=== PATIENT | female | born 1990 | race Caucasian/White ===

== ENCOUNTER → 2017-03-02 | Outpatient (CLI) | payer BC ==
--- NOTE | 2017-03-02 13:48 | US ---
EXAMINATION TYPE: US pelvic complete DATE OF EXAM: 03/02/2017 1:25 PM COMPARISON: NONE CLINICAL HISTORY: N91.2 AMENORRHEA, [id number] BODY MASS INDEX. Amenorrhea, LMP: 5 months ago TECHNIQUE: Transabdominal (TA) Date of LMP: 5 months ago EXAM MEASUREMENTS: Uterus: 7.1 x 2.5 x 4.2 cm cm Endometrial Stripe: 0.5 cm Right Ovary: 2.9 x 2.1 x 2.8 cm Left Ovary: 2.8 x 1.1 x 1.9 cm 1. Uterus: Anteverted wnl 2. Endometrium: wnl 3. Right Ovary: wnl 4. Left Ovary: wnl 5. Bilateral Adnexa: wnl 6. Posterior cul-de-sac: wnl IMPRESSION: NORMAL PELVIC ULTRASOUND.
== END | disposition home or self-care (01) ==
LOC: RADUSWWP 13:10
PROVIDERS: ATTEND Family Medicine
DX: N91.2 Amenorrhea, unspecified (principal); N92.6 Irregular menstruation, unspecified
CPT/HCPCS: 76856

== ENCOUNTER → 2020-09-11 | Outpatient (CLI) | payer OTHER ==
--- NOTE | 2020-09-12 07:22 | US ---
EXAMINATION TYPE: US abdomen complete DATE OF EXAM: 09/11/2020 COMPARISON: NONE CLINICAL HISTORY: R11.10 Vomiting; R10.9 abdominal pain. EXAM MEASUREMENTS: Liver Length: 14.3 cm Gallbladder Wall: 0.1 cm CBD: 0.3 cm Spleen: 9.7 cm Right Kidney: 10.9 x 4.1 x 5.3 cm Left Kidney: 10.0 x 4.7 x 4.5 cm Patient of large body habitus. Pancreas: Tail obscured by overlying bowel gas Liver: wnl Gallbladder: wnl Evidence for sonographic Stephens's sign: no CBD: wnl Spleen: wnl Right Kidney: No hydronephrosis or masses seen Left Kidney: No hydronephrosis or masses seen Upper IVC: wnl Abd Aorta: bifurcation obscured by bowel gas The liver is homogenous. The intrahepatic portion of the IVC and proximal abdominal aorta are within normal limits. There is no evidence of cholelithiasis. Common bile duct is unremarkable. The visu alized portions of the pancreas are homogenous. The spleen is unremarkable. Kidneys are symmetric a nd free of hydronephrosis. No renal lesions are seen. IMPRESSION: No abnormality evident
== END | disposition home or self-care (01) ==
LOC: RADUSWWP 16:14
PROVIDERS: ATTEND Family Medicine
DX: R11.10 Vomiting, unspecified (principal); R10.9 Unspecified abdominal pain
CPT/HCPCS: 76700

== ENCOUNTER → 2020-10-11 | Outpatient (CLI) | payer OTHER ==
--- NOTE | 2020-10-11 09:25 | NM ---
EXAMINATION TYPE: NM hepatobiliary wo EF DATE OF EXAM: 10/11/2020 COMPARISON: NONE INDICATION: Abdomen pain TECHNIQUE: After the intravenous administration of 5 mCi Tc 99m Mebrofenin hepatobiliary scintigraphy is performed. Images were obtained immediately post injection. FINDINGS: There is prompt uptake and excretion of radiotracer by the liver. Extrahepatic ducts are identified at 7 minutes. The gallbladder is not visualized Small bowel activity is noted within 9 minutes. Two-hour delayed images were obtained. Radiotracer is largely excreted. IMPRESSION: 1. Clinical correlation recommended for cystic duct obstruction.
== END | disposition home or self-care (01) ==
LOC: RADNMMAIN 06:37
PROVIDERS: ATTEND Family Medicine
DX: R10.10 Upper abdominal pain, unspecified (principal); R11.10 Vomiting, unspecified
CPT/HCPCS: 78226; A9537

== ENCOUNTER 2021-02-03 13:28 | Emergency (ER) | payer OTHER ==
[2021-02-03 13:32] VITALS: RESP 16; TEMP 97.4
--- NOTE | 2021-02-03 13:43 | ED ---
Dizziness HPI - General Chief Complaint: Dizziness Stated Complaint: High Blood Pressure Time Seen by Provider: 02/03/21 13:36 Source: patient Mode of arrival: ambulatory Limitations: no limitations - History of Present Illness Initial Comments: 30-year-old female presents to emergency department with a chief complaint of high blood pressure. Patient reports yesterday she began to feel "disoriented". Patient reports she did not feel well and left work to go home. Patient reports she woke up this morning and her symptoms continued. Patient reports prior to coming to the ED, she obtained a blood pressure was elevated. States she takes 20 mg of lisinopril daily. She has strong family history of hypertension and has been taking the antihypertensive since last year. She denies any chest pain or shortness of breath. Reports having a mild headache but states she does have history of migraines. She denies any visual changes, photosensitivity, nausea or vomiting. She denies any fevers or chills. She denies any cough or URI-like symptoms. - Related Data Home Medications Medication Instructions Recorded Confirmed Cetirizine HCl [Zyrtec] 10 mg PO HS 02/03/21 02/03/21 Desvenlafaxine Succinate [Pristiq] 50 mg PO HS 02/03/21 02/03/21 Omeprazole 20 mg PO HS 02/03/21 02/03/21 Primella 1 1 tab PO HS 02/03/21 02/03/21 lisinopriL [Zestril] 20 mg PO HS 02/03/21 02/03/21 Allergies Allergy/AdvReac Type Severity Reaction Status Date / Time ibuprofen Allergy Rash/Hives Verified 02/03/21 14:18 Review of Systems ROS Statement: Those systems with pertinent positive or pertinent negative responses have been documented in the HPI. ROS Other: All systems not noted in ROS Statement are negative. Past Medical History Past Medical History: Hypertension History of Any Multi-Drug Resistant Organisms: None Reported Past Surgical History: Cholecystectomy Past Psychological History: Anxiety Smoking Status: Never smoker Past Alcohol Use History: None Reported Past Drug Use History: None Reported General Exam Limitations: no limitations General appearance: alert, in no apparent distress Head exam: Present: atraumatic, normocephalic, normal inspection Eye exam: Present: normal appearance, PERRL, EOMI Pupils: Present: normal accommodation ENT exam: Present: normal exam, normal oropharynx, mucous membranes moist, TM's normal bilaterally, normal external ear exam Neck exam: Present: normal inspection, full ROM. Absent: tenderness, lymphadenopathy Respiratory exam: Present: normal lung sounds bilaterally. Absent: respiratory distress, wheezes, rales, rhonchi, stridor, chest wall tenderness Cardiovascular Exam: Present: regular rate, normal rhythm, normal heart sounds. Absent: systolic murmur Extremities exam: Present: normal inspection, full ROM, normal capillary refill. Absent: tenderness Back exam: Present: normal inspection, full ROM. Absent: tenderness, CVA tenderness (R), CVA tenderness (L) Neurological exam: Present: alert, oriented X3, CN II-XII intact, normal gait Psychiatric exam: Present: normal affect, normal mood Skin exam: Present: warm, dry, intact, normal color Course Vital Signs 02/03/21 02/03/21 13:29 15:42 Temperature 97.4 F L Pulse Rate 94 80 Respiratory 16 16 Rate Blood Pressure 158/112 128/99 O2 Sat by Pulse 100 99 Oximetry EKG Findings - EKG Comments: EKG Findings:: Sinus rhythm, inverted T waves V3. Ventricular rate 67, ID 126, QRS 86, QTC 420. Medical Decision Making - Medical Decision Making 30-year-old female presents to emergency department with a chief complaint of high blood pressure. On physical examination, patient does not appear to be in any distress. No focal neural deficits. She does not have any complaints on arrival. She was initially slightly hypertensive which has improved by the time she was discharged. The rest of vitals are within normal limits. EKG showed no acute findings. Patient was only given IV fluids. CBC, CMP and UA unremarkable. Troponin negative. The patient to follow up with the primary care physician. Strict return parameters were thoroughly discussed with patient was understanding and agreeable. Case discussed with Dr. Ceja - Lab Data Result diagrams: 02/03/21 14:06 02/03/21 14:06 Lab Results 02/03/21 02/03/21 02/03/21 Range/Units 14:06 14:06 14:06 WBC 8.3 (3.8-10.6) k/uL RBC 4.49 (3.80-5.40) m/uL Hgb 13.6 (11.4-16.0) gm/dL Hct 42.4 (34.0-46.0) % MCV 94.4 (80.0-100.0) fL MCH 30.3 (25.0-35.0) pg MCHC 32.1 (31.0-37.0) g/dL RDW 13.3 (11.5-15.5) % Plt Count 342 (150-450) k/uL MPV 7.2 Neutrophils % 66 % Lymphocytes % 27 % Monocytes % 4 % Eosinophils % 2 % Basophils % 0 % Neutrophils # 5.5 (1.3-7.7) k/uL Lymphocytes # 2.2 (1.0-4.8) k/uL Monocytes # 0.3 (0-1.0) k/uL Eosinophils # 0.2 (0-0.7) k/uL Basophils # 0.0 (0-0.2) k/uL Sodium (137-145) mmol/L Potassium (3.5-5.1) mmol/L Chloride (98-107) mmol/L Carbon Dioxide (22-30) mmol/L Anion Gap mmol/L BUN (7-17) mg/dL Creatinine (0.52-1.04) mg/dL Est GFR (CKD-EPI)AfAm (>60 ml/min/1.73 sqM) Est GFR (CKD-EPI)NonAf (>60 ml/min/1.73 sqM) Glucose (74-99) mg/dL Calcium (8.4-10.2) mg/dL Total Bilirubin (0.2-1.3) mg/dL AST (14-36) U/L ALT (4-34) U/L Alkaline Phosphatase (38-126) U/L Troponin I (0.000-0.034) ng/mL Total Protein (6.3-8.2) g/dL Albumin (3.5-5.0) g/dL Urine Color Yellow Urine Appearance Clear (Clear) Urine pH 6.0 (5.0-8.0) Ur Specific [place] 1.029 (1.001-1.035) Urine Protein Trace H (Negative) Urine Glucose (UA) Negative (Negative) Urine Ketones Negative (Negative) Urine Blood Negative (Negative) Urine Nitrite Negative (Negative) Urine Bilirubin Negative (Negative) Urine Urobilinogen 2.0 (<2.0) mg/dL Ur Leukocyte Esterase Trace H (Negative) Urine RBC <1 (0-5) /hpf Urine WBC 1 (0-5) /hpf Ur Squamous Epith Cells 5 H (0-4) /hpf Urine Bacteria Rare H (None) /hpf Urine Mucus Many H (None) /hpf Urine HCG, Qual Not Detected (Not Detectd) 02/03/21 02/03/21 Range/Units 14:06 14:06 WBC (3.8-10.6) k/uL RBC (3.80-5.40) m/uL Hgb (11.4-16.0) gm/dL Hct (34.0-46.0) % MCV (80.0-100.0) fL MCH (25.0-35.0) pg MCHC (31.0-37.0) g/dL RDW (11.5-15.5) % Plt Count (150-450) k/uL MPV Neutrophils % % Lymphocytes % % Monocytes % % Eosinophils % % Basophils % % Neutrophils # (1.3-7.7) k/uL Lymphocytes # (1.0-4.8) k/uL Monocytes # (0-1.0) k/uL Eosinophils # (0-0.7) k/uL Basophils # (0-0.2) k/uL Sodium 139 (137-145) mmol/L Potassium 3.7 (3.5-5.1) mmol/L Chloride 105 (98-107) mmol/L Carbon Dioxide 29 (22-30) mmol/L Anion Gap 5 mmol/L BUN 8 (7-17) mg/dL Creatinine 0.61 (0.52-1.04) mg/dL Est GFR (CKD-EPI)AfAm >90 (>60 ml/min/1.73 sqM) Est GFR (CKD-EPI)NonAf >90 (>60 ml/min/1.73 sqM) Glucose 96 (74-99) mg/dL Calcium 9.6 (8.4-10.2) mg/dL Total Bilirubin 0.5 (0.2-1.3) mg/dL AST 24 (14-36) U/L ALT 16 (4-34) U/L Alkaline Phosphatase 81 (38-126) U/L Troponin I <0.012 (0.000-0.034) ng/mL Total Protein 7.2 (6.3-8.2) g/dL Albumin 4.4 (3.5-5.0) g/dL Urine Color Urine Appearance (Clear) Urine pH (5.0-8.0) Ur Specific [place] (1.001-1.035) Urine Protein (Negative) Urine Glucose (UA) (Negative) Urine Ketones (Negative) Urine Blood (Negative) Urine Nitrite (Negative) Urine Bilirubin (Negative) Urine Urobilinogen (<2.0) mg/dL Ur Leukocyte Esterase (Negative) Urine RBC (0-5) /hpf Urine WBC (0-5) /hpf Ur Squamous Epith Cells (0-4) /hpf Urine Bacteria (None) /hpf Urine Mucus (None) /hpf Urine HCG, Qual (Not Detectd) Disposition Clinical Impression: Lightheadedness Disposition: HOME SELF-CARE Condition: Stable Instructions (If sedation given, give patient instructions): Lightheadedness (ED) Additional Instructions: Follow with the primary care physician. Return to emergency department if symptoms worsen. Is patient prescribed a controlled substance at d/c from ED?: No Referrals: Nubia Ace MD [Primary Care Provider] - 1-2 days Time of Disposition: 15:25
[2021-02-03] MEDS ORDERED: SODIUM CHLORIDE 0.9% 1,000 ML IV STA (13:58)
[2021-02-03 14:23] LABS: Basophils % (A) 0 %; Eosinophils # (A) 0.2 k/uL (0-0.7); Eosinophils % (A) 2 %; HCT 42.4 % (34.0-46.0); HGB 13.6 gm/dL (11.4-16.0); Lymphocytes # (A) 2.2 k/uL (1.0-4.8); Lymphocytes % (A) 27 %; MCH 30.3 pg (25.0-35.0); MCHC 32.1 g/dL (31.0-37.0); MCV 94.4 fL (80.0-100.0); Mean Platelet Volume 7.2; Monocytes # (A) 0.3 k/uL (0-1.0); Monocytes % (A) 4 %; Neutrophils # (A) 5.5 k/uL (1.3-7.7); Neutrophils % (A) 66 %; Platelet Count 342 k/uL (150-450); RBC 4.49 m/uL (3.80-5.40); RDW 13.3 % (11.5-15.5); WBC 8.3 k/uL (3.8-10.6)
[2021-02-03 14:27] LABS: ALT 16 U/L (4-34); AST 24 U/L (14-36); African American GFR (CKD) >90 (>60 ml/min/1.73 sqM); Albumin 4.4 g/dL (3.5-5.0); Alkaline Phosphatase 81 U/L (38-126); Anion Gap 5 mmol/L; Blood Urea Nitrogen 8 mg/dL (7-17); Calcium 9.6 mg/dL (8.4-10.2); Carbon Dioxide 29 mmol/L (22-30); Chloride 105 mmol/L (98-107); Glucose 96 mg/dL (74-99); Non-African American GFR(CKD) >90 (>60 ml/min/1.73 sqM); Potassium 3.7 mmol/L (3.5-5.1); Sodium 139 mmol/L (137-145); Total Bilirubin 0.5 mg/dL (0.2-1.3); Total Protein 7.2 g/dL (6.3-8.2)
[2021-02-03 14:41] LABS: Appearance,Urine Clear (Clear); Bacteria,Urine Rare /hpf; Bilirubin,Urine Negative (Negative); Blood,Urine Negative (Negative); Color,Urine Yellow; Glucose,Urine (UA) Negative (Negative); Ketones,Urine Negative (Negative); Leukocyte Esterase,Urine Trace (Negative); Mucus,Urine Many /hpf; Nitrite,Urine Negative (Negative); Protein,Urine Trace (Negative); RBC,Urine <1 /hpf (0-5); Specific Gravity,Urine 1.029 (1.001-1.035); Squamous Epithelial Cell,Urine 5 /hpf (0-4); WBC,Urine 1 /hpf (0-5)
[2021-02-03 15:43] VITALS: BP 128/99; PULSE 80
== END 2021-02-03 15:51 | disposition home or self-care (01) ==
LOC: EC 13:28
DX: R42 Dizziness and giddiness (principal); I10 Essential (primary) hypertension; Z90.49 Acquired absence of other specified parts of digestive tract
CPT/HCPCS: 36415; 80053; 81001; 81025; 84484; 85025; 93005; 96360; 99284

== ENCOUNTER → 2022-10-31 | Outpatient (CLI) | payer OTHER ==
--- NOTE | 2022-10-31 10:22 | XR ---
EXAMINATION TYPE: XR foot complete LT DATE OF EXAM: 10/31/2022 10:19 AM INDICATION: Patient age:Female; 32 years old; Reason for study: M79.672 left foot pain; PHH. COMPARISON: None TECHNIQUE: The left foot was examined in the AP, oblique, and lateral projections. FINDINGS: No evidence of any acute osseous pathology. No evidence of soft tissue swelling. Joints are preserve d. IMPRESSION: No evidence of acute fracture.
== END | disposition home or self-care (01) ==
LOC: RADXRMAIN 10:04
PROVIDERS: ATTEND Nurse Practitioner Family
DX: M79.672 Pain in left foot (principal)

== ENCOUNTER → 2023-05-07 | Outpatient (CLI) | payer OTHER ==
--- NOTE | 2023-05-07 19:48 | XR ---
EXAMINATION TYPE: XR knee complete LT DATE OF EXAM: 05/07/2023 COMPARISON: None HISTORY: 33-year-old female M25.562 Pain left knee TECHNIQUE: 3 views FINDINGS: There is some increased density in the infra patellar Hoffa's fat. There is a trace effusion in the s uprapatellar pouch. Some anterior soft tissue swelling is noted. No acute fracture, subluxation, disl ocation. IMPRESSION: Some anterior soft tissue swelling. There is some density within the infrapatellar Hoffa's fat that c ould reflect underlying joint effusion or synovitis. If pain persists and if there is concern for int ernal derangement, consider MRI. No acute osseous abnormality seen.
== END | disposition home or self-care (01) ==
LOC: RADXRMAIN 14:21
PROVIDERS: ATTEND Nurse Practitioner Family
DX: M79.89 Other specified soft tissue disorders (principal)

== ENCOUNTER 2024-01-05 08:44 | Outpatient (CLI) | payer OTHER ==
[2024-01-05] MEDS: LACTATED RINGERS 1,000 ML IV ONE (09:15)
[2024-01-05 09:38] LABS: Basophils % (A) 0 %; Eosinophils # (A) 0.1 k/uL (0-0.7); Eosinophils % (A) 1 %; HCT 39.1 % (34.0-46.0); Lymphocytes # (A) 2.5 k/uL (1.0-4.8); Lymphocytes % (A) 24 %; MCH 32.1 pg (25.0-35.0); MCHC 33.3 g/dL (31.0-37.0); MCV 96.2 fL (80.0-100.0); Mean Platelet Volume 7.8; Monocytes # (A) 0.4 k/uL (0-1.0); Monocytes % (A) 4 %; Neutrophils % (A) 69 %; Platelet Count 237 k/uL (150-450); RBC 4.06 m/uL (3.80-5.40); RDW 12.6 % (11.5-15.5); WBC 10.3 k/uL (3.8-10.6)
[2024-01-05 09:51] LABS: Appearance,Urine Cloudy (Clear); Bacteria,Urine Rare /hpf; Bilirubin,Urine Negative (Negative); Blood,Urine Negative (Negative); Color,Urine Yellow; Glucose,Urine (UA) Negative (Negative); Ketones,Urine Trace (Negative); Leukocyte Esterase,Urine Trace (Negative); Mucus,Urine Many /hpf; Nitrite,Urine Negative (Negative); PH, Urine 6.5 (5.0-8.0); Protein,Urine Trace (Negative); RBC,Urine 2 /hpf (0-5); Specific Gravity,Urine 1.033 (1.001-1.035); Squamous Epithelial Cell,Urine 4 /hpf (0-4); Urobilinogen,Urine >12.0 mg/dL (<2.0); WBC,Urine 4 /hpf (0-5)
[2024-01-05 14:17] VITALS: BP 122/91; PULSE 67; RESP 18; TEMP 95.4
--- NOTE | 2024-01-08 10:59 | P.MSEPDOC ---
Presenting Problems - Arrival Data Date of Arrival on Unit: 01/05/24 Time of Arrival on Unit: 08:44 Mode of Transport: Ambulatory - Complaint OB-Reason for Admission/Chief Complaint: Other Comment: pt c/p Nausea/Vomitting. Medical History - Information : 1 Para: 0 Term: 0 : 0 Abortions: Spontaneous or Elective: 0 Number of Living Children: 0 - Gestational Age Gestational Age by GIL (wks/days): 20 Weeks and 2 Days Review of Systems - Review of Systems Constitutional: No problems Breast: No problems ENT: No problems Cardiovascular: No problems Respiratory: No problems Gastrointestinal: No problems Genitourinary: No problems Musculoskeletal: No problems Neurological: No problems Skin: No problems Vital Signs - Temperature Temperature: 95.4 F Temperature Source: Temporal Artery Scan - Pulse Pulse Oximetery Pulse Rate: 67 Pulse Assessment Method: Pulse Oximetry - Respirations Respiratory Rate: 18 Oxygen Delivery Method: Room Air O2 Sat by Pulse Oximetry: 99 - Blood Pressure Right Arm Blood Pressure: 122/91 Blood Pressure Mean: 101 Blood Pressure Source: Automatic Cuff Physician Notification - Physician Notified Physician Notified Date: 01/05/24 Physician Notified Time: 11:37 Physician: Johnathon Roca Order Received: Yes (Discharge home with follow up instructions.) Maternal Triage Index - Maternal Triage Index Presenting for scheduled procedure w/no complaint: No - Stat/Priority 1 Stat Priority 1: No - Urgent/Priority 2 Urgent Priority 2: No - Prompt/Priority 3 Prompt Priority 3: No - Non-Urgent/Priority 4 Non-Urgent Priority 4: Yes Criteria Met for Priority 4: Nausea/vomitting. Disposition - Disposition OB Disposition: Discharge to home Discharge Date: 01/05/24 Discharge Time: 11:44 I agree with the RN Medical Screening Exam: Yes Physician's MSE Comment: I have neither seen nor examined the patient. Case reviewed; plan agreed upon as documented in EMR&OBIX.: Yes Diagnosis: EXCESSIVE WEIGHT GAIN IN , SECOND TRIMESTER
== END 2024-01-05 11:44 | disposition home or self-care (01) ==
LOC: FBPOP 08:44
PROVIDERS: ATTEND Obstetrics & Gynecology
DX: O21.9 Vomiting of pregnancy, unspecified (principal); O26.02 Excessive weight gain in pregnancy, second trimester; Z3A.20 20 weeks gestation of pregnancy; Z88.6 Allergy status to analgesic agent
CPT/HCPCS: 36415; 81001; 85025; 96360; 96361; 99214

== ENCOUNTER 2024-04-23 06:00 | Inpatient (IN) | payer OTHER ==
[2024-04-23] MEDS ORDERED: CARBOPROST TROMETHAMINE 250 MCG/ML 1 ML AMP IM PRN ×2 (06:29→13:46)
[2024-04-23] MEDS ORDERED: LIDOCAINE 0.5% (PF) 5 MG/ML (50 ML SDV) SQ PRN (06:29)
[2024-04-23] MEDS ORDERED: TRANEXAMIC 1,000 MG/100ML-NACL 1,000 MG in EMPTY BAG 1 BAG IV PRN ×2 (06:29→13:46)
[2024-04-23] MEDS ORDERED: miSOPROStoL 200 MCG TAB RECTAL PRN (06:29)
[2024-04-23] MEDS ORDERED: miSOPROStoL 200 MCG TAB PO PRN ×2 (06:29→13:46)
[2024-04-23] MEDS ORDERED: OXYTOCIN 10 UNIT/ML 1 ML VIAL IM PRN ×2 (06:29→13:46)
[2024-04-23] MEDS ORDERED: TERBUTALINE 1 MG/ML VIAL SQ PRN (06:29)
[2024-04-23] MEDS ORDERED: METHYLERGONOVINE 0.2 MG/ML 1 ML AMP IM PRN ×2 (06:29→13:46)
[2024-04-23] MEDS: LACTATED RINGERS 1,000 ML IV SCH ×2 (06:45→17:55)
[2024-04-23 07:05] LABS: Basophils # (A) 0.1 k/uL (0-0.2); Basophils % (A) 1 %; Eosinophils # (A) 0.2 k/uL (0-0.7); Eosinophils % (A) 1 %; HCT 38.9 % (34.0-46.0); HGB 13.8 gm/dL (11.4-16.0); Lymphocytes # (A) 2.3 k/uL (1.0-4.8); Lymphocytes % (A) 16 %; MCH 33.6 pg (25.0-35.0); MCHC 35.5 g/dL (31.0-37.0); MCV 94.7 fL (80.0-100.0); Monocytes # (A) 0.5 k/uL (0-1.0); Monocytes % (A) 3 %; Neutrophils # (A) 11.3 k/uL (1.3-7.7); Neutrophils % (A) 78 %; Platelet Count 242 k/uL (150-450); RDW 12.9 % (11.5-15.5); WBC 14.5 k/uL (3.8-10.6)
[2024-04-23] MEDS: OXYTOCIN 30 UNITS/500 ML NS 30 UNIT in SALINE 1 500ML.BAG IV SCH (08:54)
[2024-04-23] MEDS ORDERED: OXYTOCIN 30 UNITS/500 ML NS 30 UNIT in SALINE 1 500ML.BAG IV SCH (09:00)
--- NOTE | 2024-04-23 09:42 | P.HPOB ---
History of Present Illness H&P Date: 04/23/24 Chief Complaint: medical induction of labor Ms. Sarmiento is a 34 year old at 35 weeks and 6 days with EDC of 05/22/24 by LMP consistent with 11 week US who presents for medical induction of labor for IUGR 6%ile with finding of intermittently absent end diastolic flow in umbilical arteries on 04/22 on ultrasound. Prior to this finding, all surveillance was reassuring. The has also been complicated by maternal anxiety and depression for which she takes Pristiq 100mg daily. Finally, the patient has a history of chronic hypertension for which she has been stable on Propranolol 60mg from her PCP. Upon admission today, the patient did have mild to severe range elevated blood pressures. PI labs are pending. The patient denies headache, visual disturbances, right upper quadrant pain, chest pain, shortness of breath. work-up: blood type B positive, antibody screen negative, rubella immune, VDRL non-reactive, HBsAg negative, HIV negative, HCV Ab negative, gonorrhea negative, chlamydia negative, 1 hour GTT within normal limits, s/p TDap, GBS unknown as the patient is still 35 weeks. Past Medical History Past Medical History: Hypertension History of Any Multi-Drug Resistant Organisms: None Reported Past Surgical History: Cholecystectomy Additional Past Anesthesia/Blood Transfusion Reaction / Comment(s): nausea Past Psychological History: Anxiety Smoking Status: Never smoker Past Alcohol Use History: None Reported Past Drug Use History: None Reported Medications and Allergies Home Medications Medication Instructions Recorded Confirmed Type Desvenlafaxine Succinate [Pristiq] 50 mg PO HS 02/03/21 04/23/24 History Propranolol HCl [Inderal] 60 mg PO DAILY 01/05/24 04/23/24 History Allergies Allergy/AdvReac Type Severity Reaction Status Date / Time ibuprofen Allergy Rash/Hives Verified 04/23/24 06:28 Exam Vital Signs Temp Pulse Resp BP Pulse Ox 04/23/24 06:27 96.4 F L 62 16 137/99 95 Intake and Output 04/22/24 04/23/24 04/23/24 22:59 06:59 14:59 Other: Weight 104.326 kg Focused physical exam is performed. This is a healthy-appearing in no apparent distress. Breathing is non-labored. Abdomen is gravid and non-tender. Cervical exam is 1/thick/-3 Sterile speculum was used to place a cooks catheter with 60cc in each balloon. Extremities non-tender and non-edematous. heart tones are reactive and reassuring on NST. Results Result Diagrams: 04/23/24 06:46 Abnormal Lab Results - Last 24 Hours (Table) 04/23/24 Range/Units 06:46 WBC 14.5 H (3.8-10.6) k/uL Neutrophils # 11.3 H (1.3-7.7) k/uL Assessment and Plan Assessment: 34 year old at 35 weeks and 6 days here for medical induction of labor for IUGR 6%ile with umbilical artery dopplers showing intermittently absent end diastolic flow Plan: Admit, clear liquid diet, cooks catheter x6-12 hours with low-dose pitocin, IV nubain prn, continuous EFM and tocometer, PCN G for GBS ppx.
[2024-04-23] MEDS: PENICILLIN G POTASSIUM 5,000,000 UNIT in DEXTROSE 5% IN WATER 100 ML IVPB STA (10:01)
[2024-04-23] MEDS: ONDANSETRON 4 MG/2 ML VIAL IVP PRN (10:51)
[2024-04-23] MEDS: NALBUPHINE 10 MG/ML (10 ML MDV) IV PRN (10:59)
[2024-04-23 11:15] LABS: ALT 10 U/L (4-34); African American GFR (CKD) >90 (>60 ml/min/1.73 sqM); Blood Urea Nitrogen 5 mg/dL (7-17); LDH 225 U/L (120-246); Non-African American GFR(CKD) >90 (>60 ml/min/1.73 sqM); Uric Acid 5.3 mg/dL (3.7-7.4)
[2024-04-23 12:30] LABS: Glucose,Whole Blood 105 mg/dL (70-110)
[2024-04-23] MEDS: hydrALAZINE HCL 20 MG/ML 1 ML VIAL IVP STA (12:47)
[2024-04-23 13:22] LABS: Creatinine,Urine Random 56.8 mg/dL; Protein/Creatinine Ratio,Urine 0.264
[2024-04-23] MEDS ORDERED: ONDANSETRON 4 MG/2 ML VIAL ONE (14:08)
[2024-04-23] MEDS ORDERED: OXYTOCIN 30 UNITS/500 ML NS BAG IV ONE (14:08)
[2024-04-23] MEDS ORDERED: MORPHINE SULFATE (PF) 0.3 MG/0.3 ML SYR ONE (14:08)
[2024-04-23] MEDS ORDERED: CELLULOSE,OXIDIZED 1 EACH EACH MISCELLANE ONE (14:45)
[2024-04-23] MEDS: CITRIC ACID-SODIUM CITRATE 15 ML CUP PO ONE (15:15)
[2024-04-23] MEDS: NA PHOS,M-B/NA PHOS,DI-BA 133 ML ENEMA RECTAL STA (15:15)
[2024-04-23] MEDS: PENICILLIN G POTASSIUM 2,500,000 UNIT in DEXTROSE 5% IN WATER 100 ML IVPB SCH (15:15)
[2024-04-23] MEDS ORDERED: NALOXONE 0.4 MG/ML 1 ML VIAL IV PRN (15:38)
[2024-04-23] MEDS ORDERED: ONDANSETRON 4 MG/2 ML VIAL IVP PRN (15:38)
[2024-04-23] MEDS ORDERED: diphenhydrAMINE 50 MG/ML 1 ML VIAL IVP PRN ×2 (15:38)
[2024-04-23] MEDS ORDERED: ZOLPIDEM 5 MG TAB PO PRN (15:38)
[2024-04-23] MEDS ORDERED: SIMETHICONE 80 MG CHEWABLE PO PRN (15:38)
[2024-04-23] MEDS ORDERED: diphenhydrAMINE 25 MG CAP PO PRN (15:38)
[2024-04-23] MEDS ORDERED: METOCLOPRAMIDE 5 MG/ML 2 ML VIAL IVP PRN (15:38)
[2024-04-23] MEDS ORDERED: diphenhydrAMINE 50 MG CAP PO PRN (15:38)
--- NOTE | 2024-04-23 15:38 | P.OP ---
Date of Procedure: 04/23/24 Preoperative Diagnosis: 1. IUP at 35 weeks and 6 days 2. IUGR 3. Intermittently absent end diastolic flow in umbilical arteries 4. Chronic hypertension 5. Breech presentation Postoperative Diagnosis: Same Procedure(s) Performed: Primary Lower Transverse Section with T incision Implants: None Anesthesia: spinal Surgeon: Annamaria Lara Database Administration Manager #1: Augustina Nelson Estimated Blood Loss (ml): 750 IV fluids (ml): 600 Urine output (ml): 100 (clear yellow) Pathology: other (placenta to pathology) Disposition: floor Indications for Procedure: Ms. Sarmiento is a 34 year old at 35 weeks and 6 days who presented for medical induction of labor for IUGR with UA dopplers showing intermittently absent end diastolic flow as well as a history of chronic hypertension. Cooks catheter was placed for cervical ripening. Patient was not tolerating cooks catheter well, therefore it was removed after 5 hours and the patient was dilated to 5 centimeters. AROM was performed at this time, and a foot was noted in the vagina. section was recommended as the fetus had flipped to breech presentation. This was also confirmed with bedside ultrasound. The risks, benefits, and alternatives to section were discussed with the patient including risk of bleeding, infection, damage to surrounding structures including bladder/bowels/ureters, and post-operative VTE. The patient u nderstands these risks and desires to proceed with section. Operative Findings: Clear amniotic fluid noted, infant in single footling breech presentation with a hyperextended neck making delivery of the head difficult. Apgars were 1/6/9 at 1-, 5-, and 10-minutes respectively. The weighed 3 pounds and 13 ounces. Uterus, bilateral fallopian tubes, and ovaries all within normal limits. Description of Procedure: The patient was taken back to the operating room where spinal anesthesia was found to be adequate. Two grams of Ancef were given for infection prophylaxis. She was prepared and draped in the dorsal supine position with a leftward tilt. A Pfannenstiel skin incision was made with the scalpel. The incision was carried down to the fascia with a bovie. The fascia was incised and extended laterally with Lyman scissors. The superior aspect of the fascia was grasped with the Jania clamps. The underlying rectus muscle was dissected off sharply with Lyman scissors. In a similar fashion, the inferior aspect of the fascia was elevated with Jania clamps and the rectus muscle and pyramidalis were dissected off. Excellent hemostasis was achieved with the bovie. The rectus muscle was in the midline down to the level of the pubic symphysis. Pre- peritoneal fatty tissue was bluntly dissected to expose the peritoneum. The peritoneum was found to be free of adherent bowel and entered sharply with Lyman scissors. The peritoneal incision was extended superiorly and inferiorly to the bladder reflection with good visualization of the bladder. The bladder blade was inserted and vesicouterine peritoneum was identified. Intraabdominal survey revealed scant, clear peritoneal fluid and the thinned-out lower uterine segment. The vesicouterine peritoneum was opened with scissors and the bladder flap was developed. The bladder blade was repositioned to keep the bladder out of the operative field. The lower uterine segment was incised with a scalpel. The amniotic sac was ruptured with an Allis clamp and clear fluid was noted. The uterine incision was extended bluntly with lateral and upward traction. The fetu s was in single footling breech presentation. One foot was deliered. Then, the buttocks was palpated and delivered gradually through the hysterotomy. The other leg was extended using the Pinard maneuver. With gentle pressure the body gradually delivered. Once the scapula could be seen the baby was gently rotated and both arms were delivered using the Loveseat maneuver. Maintaining head flexion in a modified [id number]-[id number] maneuver the head was delivered with some difficulty requiring a T incision in the middle of the hysterotomy with bandage scissors. The mouth and nose were suctioned with a bulb. The cord was clamped and cut. The infant was handed off to the pediatric team. IV oxytocin was initiated to facilitate uterine contractions. The placenta was delivered intact with manual massage of uterine fundus. The uterus was then exteriorized and the inside of the uterus was gently wiped with a lap sponge to assure complete removal of placental membranes. The uterine incision was closed with 0-Vicryl suture in a running locked fashion. The T portion of the incision was closed with 0-Vicryl in a running locked fashion. A second imbricating layer was placed with 0-Vicryl. The ovaries and tubes were found to be normal. The uterus, tubes, and ovaries were then gently returned to the abdominal cavity. Additional [id number]-ja-[id number] stitches with 0-Vicryl were used to facilitate hemostasis at the angles of the hysterotomy. The abdominal gutters were cleaned thoroughly. The uterine incision was reinspected and excellent hemostasis was noted. Intercede was placed along the uterus to prevent adhesion formation. The fascial layer was closed with a 0-Vicryl suture. The subcutaneous tissue was reapproximated with 2-0 Plain Gut. The skin was closed with 4-0 Monocryl in a subcuticular fashion.The patient tolerated the procedure well. All the counts were correct times two. The patient was taken to the recovery room in a stable condition. A physician surgical scrub tech was utilized for the entire procedure due to the need for tissue retraction, dissection of vital structures, prevention and management of blood loss, and reduction in overall operative and anesthesia time as is the standard of care.
[2024-04-23] MEDS: ACETAMINOPHEN TAB 500 MG TAB PO SCH (17:44)
[2024-04-23] MEDS: SENNOSIDES-DOCUSATE SODIUM 1 EACH TAB PO SCH (21:20)
[2024-04-23] MEDS: DESVENLAFAXINE SUCCINATE 50 MG TAB.ER.24H PO SCH (21:59)
[2024-04-23] MEDS: PROPRANOLOL 20 MG TAB PO SCH (21:59)
[2024-04-24 06:39] LABS: Basophils % (A) 0 %; Eosinophils # (A) 0.1 k/uL (0-0.7); Eosinophils % (A) 1 %; HCT 38.7 % (34.0-46.0); HGB 12.9 gm/dL (11.4-16.0); Lymphocytes # (A) 2.3 k/uL (1.0-4.8); Lymphocytes % (A) 14 %; MCHC 33.3 g/dL (31.0-37.0); Mean Platelet Volume 8.9; Monocytes # (A) 0.6 k/uL (0-1.0); Monocytes % (A) 4 %; Neutrophils # (A) 13.4 k/uL (1.3-7.7); Neutrophils % (A) 81 %; Platelet Count 230 k/uL (150-450); RBC 4.03 m/uL (3.80-5.40); RDW 12.9 % (11.5-15.5); WBC 16.6 k/uL (3.8-10.6)
[2024-04-24] MEDS ORDERED: DESVENLAFAXINE SUCCINATE 50 MG TAB.ER.24H PO SCH (09:00)
[2024-04-24] MEDS ORDERED: PROPRANOLOL 20 MG TAB PO SCH (09:00)
--- NOTE | 2024-04-24 10:41 | P.PNOBGPC ---
Subjective - Subjective Principal diagnosis: s/p primary section for breech presentation, IUGR Interval history: The patient is doing well this morning and had no acute events overnight. She has no complaints this morning. She reports minimal lochia, passing flatus, voiding without difficulty, ambulating, and eating/drinking without nausea or vomiting. She is breast feeding her infant via expressed colostrum. in the nursery for prematurity. She denies chest pain, shortness of breathing, fevers, or chills overnight. She denies pain or swelling in the legs. Patient reports: Reports appetite normal, Reports voiding normally, Reports pain well controlled, Reports ambulating normally : doing well, other (in nursery for prematurity) Objective - Vital Signs Latest vital signs: Vital Signs Temp Pulse Pulse Resp BP Pulse Ox 04/24/24 04:00 97.7 F 62 16 130/88 04/24/24 00:00 98.1 F 61 16 121/85 04/23/24 20:00 98.1 F 67 16 134/89 04/23/24 17:11 68 16 132/86 04/23/24 16:56 65 16 128/84 04/23/24 16:41 96.5 F L 62 16 125/83 100 04/23/24 16:26 65 18 133/80 100 04/23/24 16:11 60 18 121/79 99 04/23/24 15:56 68 18 122/63 99 04/23/24 15:41 68 18 122/63 99 04/23/24 15:26 71 18 109/58 98 04/23/24 15:11 95.2 F L 75 18 109/58 Intake and Output 04/23/24 04/24/24 04/24/24 22:59 06:59 14:59 Intake Total 250 Output Total 1402 600 Balance -1402 -600 250 Intake: Oral 250 Output: Urine 600 600 Output, Quantitative 802 Blood Loss Other: Voiding Method Indwelling Catheter - Exam Extremities: Present: normal Abdomen: Present: normal appearance, soft Incision: Present: normal, dry, intact Uterus: Present: normal, firm - Labs Labs: Abnormal Lab Results - Last 24 Hours (Table) 04/23/24 04/24/24 Range/Units 10:44 06:22 WBC 16.6 H (3.8-10.6) k/uL Neutrophils # 13.4 H (1.3-7.7) k/uL BUN 5 L (7-17) mg/dL Creatinine 0.44 L (0.52-1.04) mg/dL Assessment and Plan Assessment: 34 year old now POD#1 s/p primary section at 35w6d 2/2 breech presentation, IUGR with absent end diastolic flow on umbilical artery dopplers, and cHTN Plan: 1. Post-operative. Patient meeting all post-operative milestones appropriately. 2. Viable female infant doing well in nursery on room air. Dispo: Anticipate discharge home on POD#3-4 depending on baby's course.
--- NOTE | 2024-04-24 14:11 | P.PN ---
Progress Note - Text post op day one ,status post C/S under spinal anesthesia , intrathecal morphine given for post op analgesia, , pateints doing well , pain well controlled , no headach , no anesthesia related complications.
--- NOTE | 2024-04-25 18:06 | P.PNOBGPC ---
Subjective - Subjective Principal diagnosis: s/p primary section Interval history: Patient doing well this morning. Nursing infant during exam. No acute events or problems overnight. Eating, drinking, voiding, ambulating normally. Pain well controlled. Lochia as heavy as menses or lighted. No chest pain, SOB, pain/swelling in legs. Patient reports: Reports appetite normal, Reports voiding normally, Reports pain well controlled, Reports ambulating normally [place]: doing well, nursing well Objective - Vital Signs Latest vital signs: Vital Signs Temp Pulse Resp BP Pulse Ox 04/25/24 16:00 98.4 F 69 16 125/88 98 04/25/24 09:00 98.6 F 62 16 148/94 99 04/24/24 23:51 98.5 F 77 16 138/89 Intake and Output 04/25/24 04/25/24 04/25/24 06:59 14:59 22:59 Other: # Voids 2 2 2 # Bowel Movements 1 - Exam Comments: Physical exam deferred as pt is in the nursery breast feeding her baby Assessment and Plan Assessment: 34 year old now POD#2 s/p primary section at 35w6d 2/2 breech presentation, IUGR with absent end diastolic flow on umbilical artery dopplers, and cHTN Plan: 1. Post-operative. Patient meeting all post-operative milestones appropriately. 2. Viable female infant doing well in nursery on room air. 3. cHTN. Continue Propranolol 60 qD. Dispo: Anticipate discharge home on POD#3-4 depending on baby's course.
--- NOTE | 2024-04-26 08:36 | P.PNOBGPC ---
Subjective - Subjective Principal diagnosis: s/p primary section Interval history: The patient is doing well this morning and had no acute events overnight. She has no complaints this morning. She reports minimal lochia, passing flatus, voiding without difficulty, ambulating, and eating/drinking without nausea or vomiting. She is her without difficulty. She denies chest pain, shortness of breathing, fevers, or chills overnight. She denies pain or swelling in the legs. Patient denies HAs, visual disturbances, and RUQ pain. Patient reports: Reports appetite normal, Reports voiding normally, Reports pain well controlled, Reports ambulating normally [place]: doing well, nursing well, other (in nursery for prematurity) Objective - Vital Signs Latest vital signs: Vital Signs Temp Pulse Resp BP Pulse Ox 04/26/24 00:00 97.7 F 68 16 135/92 04/25/24 20:00 98.2 F 62 16 143/95 04/25/24 16:00 98.4 F 69 16 125/88 98 04/25/24 09:00 98.6 F 62 16 148/94 99 Intake and Output 04/25/24 04/26/24 04/26/24 22:59 06:59 14:59 Other: # Voids 2 1 - Exam Comments: Exam deferred, as patient is nursing her infant in the nursery at this time. No concerns with her incision. Assessment and Plan Assessment: 34 year old now POD#3 s/p primary section at 35w6d 2/2 breech presentation, IUGR with absent end diastolic flow on umbilical artery dopplers, and cHTN Plan: 1. Post-operative. Patient meeting all post-operative milestones appropriately. 2. Viable female infant doing well in nursery on room air. 3. cHTN. Some mild range pressure o/n. Asymptomatic. Continue Propranolol 60 qD. Dispo: Anticipate discharge home on POD#4
[2024-04-26] MEDS: NIFEdipine 10 MG CAP PO STA (13:49)
[2024-04-26 16:27] LABS: Basophils # (A) 0.1 k/uL (0-0.2); Basophils % (A) 0 %; Eosinophils # (A) 0.3 k/uL (0-0.7); Eosinophils % (A) 3 %; HCT 43.4 % (34.0-46.0); Lymphocytes # (A) 1.9 k/uL (1.0-4.8); Lymphocytes % (A) 15 %; MCH 31.3 pg (25.0-35.0); MCHC 32.2 g/dL (31.0-37.0); MCV 97.3 fL (80.0-100.0); Mean Platelet Volume 8.5; Monocytes # (A) 0.3 k/uL (0-1.0); Monocytes % (A) 3 %; Neutrophils # (A) 9.4 k/uL (1.3-7.7); Neutrophils % (A) 78 %; Platelet Count 275 k/uL (150-450); RBC 4.47 m/uL (3.80-5.40); RDW 12.7 % (11.5-15.5); WBC 12.1 k/uL (3.8-10.6)
[2024-04-26 16:49] LABS: ALT 16 U/L (4-34); AST 35 U/L (14-36); African American GFR (CKD) >90 (>60 ml/min/1.73 sqM); Albumin 3.5 g/dL (3.5-5.0); Alkaline Phosphatase 106 U/L (38-126); Anion Gap 5 mmol/L; Blood Urea Nitrogen 5 mg/dL (7-17); Calcium 9.2 mg/dL (8.4-10.2); Carbon Dioxide 23 mmol/L (22-30); Chloride 108 mmol/L (98-107); Glucose 109 mg/dL (74-99); Non-African American GFR(CKD) >90 (>60 ml/min/1.73 sqM); Potassium 3.8 mmol/L (3.5-5.1); Sodium 136 mmol/L (137-145); Total Bilirubin 0.6 mg/dL (0.2-1.3); Total Protein 6.2 g/dL (6.3-8.2)
[2024-04-26] MEDS: DESVENLAFAXINE SUCCINATE 50 MG TAB.ER.24H PO SCH (21:03)
[2024-04-26] MEDS: NIFEdipine XL 30 MG TAB.ER.24 PO SCH (21:21)
--- NOTE | 2024-04-27 08:24 | P.PNOBGPC ---
Subjective - Subjective Principal diagnosis: s/p Interval history: The patient is doing well this morning and had no acute events overnight. She has no complaints this morning. She reports minimal lochia, passing flatus, voiding without difficulty, ambulating, and eating/drinking without nausea or vomiting. She is her infant without difficulty. She denies chest pain, shortness of breathing, fevers, or chills overnight. She denies pain or swelling in the legs. Patient denies PHILLIPS, visual disturbances, RUQ pain. Patient reports: Reports voiding normally, Reports pain well controlled, Reports ambulating normally : doing well Objective - Vital Signs Latest vital signs: Vital Signs Temp Pulse Resp BP Pulse Ox 04/27/24 00:41 70 16 04/27/24 00:40 98.0 F 70 16 123/82 99 04/26/24 22:31 140/99 04/26/24 21:30 98.1 F 69 16 148/100 97 04/26/24 16:07 98.3 F 79 16 133/90 04/26/24 12:18 72 16 159/108 04/26/24 09:24 98.1 F 62 16 173/104 - Exam Extremities: Present: normal Abdomen: Present: normal appearance, soft - Labs Labs: Abnormal Lab Results - Last 24 Hours (Table) 04/26/24 04/26/24 Range/Units 16:10 16:10 WBC 12.1 H (3.8-10.6) k/uL Neutrophils # 9.4 H (1.3-7.7) k/uL Sodium 136 L (137-145) mmol/L Chloride 108 H (98-107) mmol/L BUN 5 L (7-17) mg/dL Creatinine 0.44 L (0.52-1.04) mg/dL Glucose 109 H (74-99) mg/dL Total Protein 6.2 L (6.3-8.2) g/dL Assessment and Plan Assessment: 34 year old now POD#4 s/p primary section at 35w6d 2/2 breech presentation, IUGR with absent end diastolic flow on umbilical artery dopplers, and cHTN Plan: 1. Post-operative. Patient meeting all post-operative milestones appropriately. 2. Viable female doing well in nursery on room air. 3. cHTN. Some mild range pressure o/n. Asymptomatic. Propranolol switched to Procardia XL 30mg BID 2/2 to intermittently srBPs. [facility] labs / wnl. Dispo: Anticipate discharge home on POD#5,will continue to monitor BPs today
[2024-04-28 08:43] VITALS: BMI 40.7
--- NOTE | 2024-04-28 10:53 | P.PNOBGPC ---
Subjective - Subjective Principal diagnosis: s/p primary Interval history: The patient is doing well this morning and had no acute events overnight. She has no complaints this morning. She reports minimal lochia, passing flatus, voiding without difficulty, ambulating, and eating/drinking without nausea or vomiting. She is her infant without difficulty. She denies chest pain, shortness of breathing, fevers, or chills overnight. She denies pain or swelling in the legs. Patient denies PHILLIPS, visual disturbances, RUQ pain. Patient reports: Reports appetite normal, Reports voiding normally, Reports pain well controlled, Reports ambulating normally : doing well, nursing well Objective - Vital Signs Latest vital signs: Vital Signs Temp Pulse Resp BP Pulse Ox 04/28/24 09:51 110 H 126/81 04/28/24 08:00 98.4 F 113 H 16 138/104 97 04/27/24 23:39 98.4 F 91 18 130/88 99 04/27/24 21:00 90 18 152/116 04/27/24 15:59 98.4 F 105 H 16 122/83 04/27/24 11:58 86 16 155/113 Intake and Output 04/27/24 04/28/24 04/28/24 22:59 06:59 14:59 Intake Total 250 Balance 250 Intake: Oral 250 Other: Weight 104.326 kg - Exam Extremities: Present: normal Abdomen: Present: normal appearance, soft Incision: Present: normal, dry, intact Uterus: Present: normal, firm Assessment and Plan Assessment: 34 year old now POD#5 s/p primary section at 35w6d 2/2 breech presentation, IUGR with absent end diastolic flow on umbilical artery dopplers, and cHTN Plan: 1. Post-operative. Patient meeting all post-operative milestones appropriately. 2. Viable female doing well in nursery on room air. 3. cHTN. Some mild range pressures o/n. Asymptomatic. New regimen Procardia XL 90mg qAM. Will add dose of 30mg qPM if needed. [facility] labs 7/16 wnl. Dispo: Anticipate discharge home on POD#6,will continue to monitor BPs today
[2024-04-29] MEDS: NIFEdipine XL 90 MG TAB.ER.24 PO SCH (09:02)
[2024-04-29] MEDS: LABETALOL 100 MG TAB PO SCH (09:02)
--- NOTE | 2024-04-29 12:35 | P.PNOBGPC ---
Subjective - Subjective Principal diagnosis: s/p primary Interval history: The patient is doing well this morning and had no acute events overnight. She has no complaints this morning. She reports minimal lochia, passing flatus, voiding without difficulty, ambulating, and eating/drinking without nausea or vomiting. She is her infant without difficulty. She denies chest pain, shortness of breathing, fevers, or chills overnight. She denies pain or swelling in the legs. She denies PHILLIPS, blurry vision, and RUQ pain. Patient reports: Reports appetite normal, Reports voiding normally, Reports pain well controlled, Reports ambulating normally : doing well Objective - Vital Signs Latest vital signs: Vital Signs Temp Pulse Resp BP Pulse Ox 04/29/24 08:00 98.4 F 97 16 138/98 98 04/29/24 04:00 96 18 112/81 97 04/29/24 00:00 98.3 F 118 H 16 129/97 97 04/28/24 20:00 128 H 18 130/99 96 04/28/24 16:00 98.2 F 92 16 134/83 98 Intake and Output 04/28/24 04/29/24 04/29/24 22:59 06:59 14:59 Other: Voiding Method Toilet - Exam Extremities: Present: normal Abdomen: Present: normal appearance, soft Incision: Present: normal, dry, intact Uterus: Present: normal, firm Assessment and Plan Assessment: 34 year old now POD#6 s/p primary section at 35w6d 2/2 breech presentation, IUGR with absent end diastolic flow on umbilical artery dopplers, and cHTN Plan: 1. Post-operative. Patient meeting all post-operative milestones appropriately. 2. Viable female infant doing well in nursery on room air. 3. cHTN. Some mild range pressures o/n. Asymptomatic. New regimen Procardia XL 90mg qAM + 30 mg qPM. Labetalol 100mg BID added this morning for persistently high diastolic BPs. [facility] labs 7/16 wnl. Dispo: Anticipate discharge home on POD#7,will continue to monitor BPs today
[2024-04-30 09:10] VITALS: RESP 18; TEMP 97.8
--- NOTE | 2024-04-30 09:23 | P.DS ---
Providers Date of admission: 04/23/24 06:21 Expected date of discharge: 04/30/24 Attending physician: Annamaria Lara MD Primary care physician: Stated None - Discharge Diagnosis(es) (1) Status post primary low transverse section Current Visit: Yes Status: Acute (2) Hypertension Current Visit: Yes Status: Acute Hospital Course: This patient presented for a primary low transverse . She underwent this procedure and had a T-incision. Postoperatively her blood pressure was uncontrolled. She finally was put on a regimen of Procardia and labetalol that is working for her: Procardia XL 90 mg every morning and 30 mg in the evening with labetalol 100 mg twice daily. She will be discharged home postoperative day #7 in stable condition to follow-up with Dr. Lara in 1 week. She denies nausea, vomiting, chest pain, shortness of breath or calf pain. Her in cision is clean, dry, intact. Plan - Discharge Summary New Discharge Prescriptions: New NIFEdipine XL [Procardia XL] 90 mg PO DAILY #30 tab NIFEdipine XL [Procardia Xl] 30 mg PO DAILY #30 tab Labetalol [Trandate] 100 mg PO BID #60 tab Discontinued Propranolol HCl [Inderal] 60 mg PO DAILY No Action Desvenlafaxine Succinate [Pristiq] 50 mg PO HS Discharge Medication List Desvenlafaxine Succinate [Pristiq] 50 mg PO HS 02/03/21 [History] Labetalol [Trandate] 100 mg PO BID #60 tab 04/30/24 [Rx] NIFEdipine XL [Procardia XL] 90 mg PO DAILY #30 tab 04/30/24 [Rx] NIFEdipine XL [Procardia Xl] 30 mg PO DAILY #30 tab 04/30/24 [Rx] Follow up Appointment(s)/Referral(s): Annamaria Lara MD [STAFF PHYSICIAN] - 05/05/24 1:45 pm (Post Appointment 06-14-2024 at 1:15pm) Discharge Disposition: HOME SELF-CARE
[2024-04-30 15:01] VITALS: BP 135/97; PULSE 56
== END 2024-04-30 15:30 | disposition home or self-care (01) | DRG 788 ==
LOC: 4FBP 06:21
PROVIDERS: ADMIT Obstetrics & Gynecology; ATTEND Obstetrics & Gynecology
PROC: 10907ZC Drainage of Amniotic Fluid, Therapeutic from Products of Conception, Via Natural or Artificial Opening (ICD-10-PCS; 2024-04-23)
PROC: 3E0P7VZ Introduction of Hormone into Female Reproductive, Via Natural or Artificial Opening (ICD-10-PCS; 2024-04-23)
PROC: 0U7C7ZZ Dilation of Cervix, Via Natural or Artificial Opening (ICD-10-PCS; 2024-04-23)
PROC: 10D00Z1 Extraction of Products of Conception, Low, Open Approach (ICD-10-PCS; principal; 2024-04-23 14:08)
DX: O32.8XX0 Maternal care for other malpresentation of fetus, not applicable or unspecified (principal); F32.A Depression, unspecified; F41.9 Anxiety disorder, unspecified; O16.4 Unspecified maternal hypertension, complicating childbirth; O36.5930 Maternal care for other known or suspected poor fetal growth, third trimester, not applicable or unspecified; O99.343 Other mental disorders complicating pregnancy, third trimester; O99.344 Other mental disorders complicating childbirth; Z3A.35 35 weeks gestation of pregnancy; Z79.899 Other long term (current) drug therapy; Z37.0 Single live birth; Z88.8 Allergy status to other drugs, medicaments and biological substances
CPT/HCPCS: 80053; 82565; 82570; 83615; 84156; 84450; 84460; 84520; 84550; 85025; 86850; 86900; 86901; 88307